=== PATIENT | male | born 1955 | race Caucasian/White ===

== ENCOUNTER 2023-09-11 13:43 | Inpatient (IN) | payer OTHER ==
[2023-09-11] MEDS ORDERED: VANCOMYCIN 1 GRAM (PRE-DOCKED) 1,000 MG/250 ML BAG IVPB ONE ×2 (15:00→16:00)
[2023-09-11] MEDS ORDERED: PIPERACILLIN/TAZOB 3.375 GM 3.375 GM/50 ML BAG IVPB ONE ×2 (16:00→22:42)
[2023-09-11] MEDS: PIPERACILLIN/TAZOB 3.375 GM 3.375 GM in DEXTROSE 5%-WATER - 50 ML IVPB ONE (16:33)
[2023-09-11 16:37] LABS: BASO % 1.1 % (0-2.0); HEMATOCRIT 33.2 % (35.4-49); HEMOGLOBIN 11.1 GM/dL (11.7-16.9); LYMPH % 13.1 % (8-40); MCH 27.6 pg (25.7-33.7); MCHC 33.4 g/dl (32.0-35.9); MEAN CELL VOLUME 82.5 fl (80-96); MEAN PLT VOLUME 8.2 fl (7.5-11.1); MONO % 11.9 % (3.8-10.2); NEUT % 71.9 % (42.8-82.8); PLATELET COUNT 255 10^3/uL (134-434); RBC 4.03 M/mm3 (4.00-5.60); RDW 15.9 % (11.9-15.9); WHITE BLOOD COUNT 6.9 K/mm3 (4.0-10.0)
[2023-09-11 17:03] LABS: POTASSIUM 4.2 mmol/L (3.5-5.1)
[2023-09-11 17:06] LABS: CALCIUM 9.3 mg/dL (8.5-10.1)
[2023-09-11 17:07] LABS: BLOOD UREA NITROGEN 12.8 mg/dL (7-18); MAGNESIUM 1.5 mg/dL (1.8-2.4)
[2023-09-11 17:11] LABS: TOT PROT 7.1 g/dl (6.4-8.2)
[2023-09-11 17:12] LABS: BILIRUBIN,TOTAL 0.4 mg/dL (0.2-1)
[2023-09-11 17:14] LABS: INR 1.06 (0.83-1.09); PROTHROMBIN TIME (PATIENT) 12.3 SEC (9.7-13.0)
[2023-09-11 17:25] LABS: ERYTHROCYTE SEDIMENTATION RATE 52 mm/hr (0-20)
[2023-09-11] MEDS ORDERED: MAGNESIUM 1GM/D5W - 1 GM/100 ML IVPB IVPB ONE (17:54)
[2023-09-11] MEDS: VANCOMYCIN 1 GRAM (PRE-DOCKED) 1,000 MG/250 ML BAG IVPB ONE (18:03)
[2023-09-11 18:06] LABS: N-TERMINAL BNP 3565.8 pg/ml (5-125)
[2023-09-11] MEDS ORDERED: diphenhydrAMINE HCL 25 MG CAPSULE (FP) PO ONE (18:34)
[2023-09-11] MEDS: diphenhydrAMINE HCL 50 MG CAPSULE PO ONE (18:45)
[2023-09-11] MEDS: MAGNESIUM SULF 50% (8.12 MEQ/2 ML-1 GM VIAL) IVPB ONE (21:10)
[2023-09-11] MEDS: PIPERACILLIN/TAZOB 3.375 GM 3.375 GM in DEXTROSE 5%-WATER - 50 ML IVPB SCH (22:51)
[2023-09-12] MEDS: KETOROLAC TROMETHAMINE 30 MG/1 ML VIAL IVPUSH ONE (02:10)
[2023-09-12] MEDS ORDERED: ACETAMINOPHEN INJECTION 100 ML IVPB ONE (02:43)
[2023-09-12] MEDS: ACETAMINOPHEN 1000 MG/100 ML BAG IVPB PRN (02:52)
[2023-09-12] MEDS: VANCOMYCIN/WATER 1250 MG 1,250 MG/250 ML BAG IVPB SCH ×2 (06:46→17:53)
[2023-09-12] MEDS ORDERED: ACETAMINOPHEN 1000 MG/100 ML BAG IVPB PRN (09:03)
[2023-09-12 09:20] LABS: HEMATOCRIT 31.9 % (35.4-49); HEMOGLOBIN 10.6 GM/dL (11.7-16.9); MCH 27.6 pg (25.7-33.7); MCHC 33.4 g/dl (32.0-35.9); MEAN CELL VOLUME 82.8 fl (80-96); MEAN PLT VOLUME 8.5 fl (7.5-11.1); PLATELET COUNT 237 10^3/uL (134-434); RBC 3.85 M/mm3 (4.00-5.60); RDW 16.2 % (11.9-15.9); WHITE BLOOD COUNT 5.9 K/mm3 (4.0-10.0)
[2023-09-12 10:18] LABS: POTASSIUM 4.6 mmol/L (3.5-5.1)
[2023-09-12 10:22] LABS: CALCIUM 8.9 mg/dL (8.5-10.1)
[2023-09-12 10:25] LABS: PHOSPHOROUS 3.7 mg/dL (2.5-4.9)
[2023-09-12 10:26] LABS: BLOOD UREA NITROGEN 16.3 mg/dL (7-18); CREATININE 1.3 mg/dL (0.55-1.3); MAGNESIUM 1.7 mg/dL (1.8-2.4)
[2023-09-12] MEDS ORDERED: HEPARIN NA (PORCINE) 5,000 UNITS/ML 1ML VIAL SQ SCH (14:00)
[2023-09-12] MEDS ORDERED: CEFAZOLIN 1 GM in DEXTROSE 5%-WATER - 50 ML IVPB SCH (15:00)
[2023-09-12] MEDS ORDERED: PIPERACILLIN/TAZOB 3.375 GM 3.375 GM in DEXTROSE 5%-WATER - 50 ML IVPB SCH (15:00)
[2023-09-12] MEDS: COLLAGENASE CLOSTRIDIUM HIST. 30 GRAMS TUBE TP SCH (17:13)
[2023-09-12] MEDS: PIPERACILLIN/TAZOB 4.5 GM 4.5 GM in DEXTROSE 5%-WATER 100 ML IVPB SCH (18:13)
[2023-09-12] MEDS: KETOROLAC TROMETHAMINE 30 MG/1 ML VIAL IVPUSH PRN (20:26)
[2023-09-12] MEDS: MAGNESIUM OXIDE 400 MG TABLET (FP) PO SCH (21:31)
[2023-09-12] MEDS: LACTOBACILLUS ACIDOPHILUS 1 TABLET PO SCH (21:31)
[2023-09-12] MEDS: MELATONIN 5 MG TABLETS PO PRN (21:31)
[2023-09-12] MEDS: FERROUS GLUCONATE 324 MG TAB (FP) PO SCH (21:32)
[2023-09-12] MEDS: guaiFENesin/D-METHORPHAN TAB.ER.12H PO SCH (21:32)
[2023-09-13] MEDS: ACETAMINOPHEN 325 MG TABLET (FP) PO PRN (07:00)
[2023-09-13] MEDS: ENOXAPARIN NA (PORCINE) 40 MG/0.4 ML DISP.SYRIN SQ SCH (09:23)
[2023-09-13] MEDS: FLUTICASONE PROP 0.05% 16 GM NASAL SPRAY NS SCH (09:23)
[2023-09-13] MEDS: ASPIRIN 81 MG CHEWABLE TABLETS PO SCH (09:23)
[2023-09-13] MEDS: MULTIVITAMINS THER W-MINERALS COMBO TABLET (FP) PO SCH (09:23)
[2023-09-13] MEDS: HYDROCHLOROTHIAZIDE 12.5 MG CAPSULE (FP) PO SCH (09:28)
[2023-09-14] MEDS: LINEZOLID 600 MG TABLET (RESTRICTED TO ID) PO SCH (21:22)
[2023-09-15] MEDS ORDERED: PIPERACILLIN/TAZOBACTAM 4.5 GM VIAL IVPB ONE (10:00)
[2023-09-15] MEDS: VITAMIN B COMP W-C 1 EA TABLET (NEPHRO-VITE) PO SCH (10:02)
[2023-09-15] MEDS: NYSTATIN 500,000 UNITS/5 ML SUSPENSION PO SCH (11:24)
[2023-09-15] MEDS: MAG HYDROX/ALH/SMC/DPHA/LIDO 240 ML MOUTHWASH MM SCH (12:01)
[2023-09-15 17:56] LABS: BASO % 0.6 % (0-2.0); EOS % 2.1 % (0-4.5); HEMATOCRIT 35.2 % (35.4-49); HEMOGLOBIN 11.7 GM/dL (11.7-16.9); LYMPH % 17.6 % (8-40); MCH 27.4 pg (25.7-33.7); MCHC 33.3 g/dl (32.0-35.9); MEAN CELL VOLUME 82.4 fl (80-96); MEAN PLT VOLUME 8.3 fl (7.5-11.1); MONO % 9.5 % (3.8-10.2); NEUT % 70.2 % (42.8-82.8); PLATELET COUNT 247 10^3/uL (134-434); RBC 4.28 M/mm3 (4.00-5.60); RDW 16.1 % (11.9-15.9); WHITE BLOOD COUNT 6.4 K/mm3 (4.0-10.0)
[2023-09-15 18:23] LABS: CALCIUM 8.8 mg/dL (8.5-10.1)
[2023-09-15 18:27] LABS: CREATININE 1.1 mg/dL (0.55-1.3)
[2023-09-15 18:28] LABS: TOT PROT 7.4 g/dl (6.4-8.2)
[2023-09-15 18:29] LABS: BILIRUBIN,TOTAL 0.6 mg/dL (0.2-1)
[2023-09-16] MEDS: EMPAGLIFLOZIN (JARDIANCE) 25 MG TABLET PO SCH (12:22)
[2023-09-16 16:35] LABS: LDL CHOLESTEROL (ONLY SJRH) 144 mg/dL (5-100)
[2023-09-16 16:36] LABS: CHOLESTEROL 210 mg/dL (50-200)
[2023-09-16 16:39] LABS: HDL CHOLESTEROL 52 mg/dL (40-60)
[2023-09-16] MEDS: SACUBITRIL/VALSARTAN 24 MG-26 MG TABLET PO SCH (22:11)
[2023-09-17 10:04] LABS: BASO % 1.2 % (0-2.0); HEMOGLOBIN 11.9 GM/dL (11.7-16.9); LYMPH % 19.9 % (8-40); MCHC 32.2 g/dl (32.0-35.9); MEAN CELL VOLUME 83.8 fl (80-96); MEAN PLT VOLUME 8.5 fl (7.5-11.1); MONO % 10.9 % (3.8-10.2); PLATELET COUNT 269 10^3/uL (134-434); RBC 4.42 M/mm3 (4.00-5.60); RDW 15.9 % (11.9-15.9); WHITE BLOOD COUNT 6.6 K/mm3 (4.0-10.0)
[2023-09-17 10:22] LABS: POTASSIUM 4.6 mmol/L (3.5-5.1)
[2023-09-17 10:32] LABS: BLOOD UREA NITROGEN 22.5 mg/dL (7-18); CALCIUM 9.8 mg/dL (8.5-10.1)
[2023-09-17 10:36] LABS: CREATININE 1.2 mg/dL (0.55-1.3)
[2023-09-17] MEDS: ATORVASTATIN CA 20 MG TABLET (FP) PO SCH (21:22)
[2023-09-18 14:55] VITALS: BMI 25.9
[2023-09-19] MEDS ORDERED: diphenhydrAMINE HCL 25 MG CAPSULE (FP) PO PRN (09:06)
[2023-09-19 11:55] LABS: BASO % 1.1 % (0-2.0); EOS % 2.9 % (0-4.5); HEMATOCRIT 37.1 % (35.4-49); HEMOGLOBIN 12.2 GM/dL (11.7-16.9); LYMPH % 22.5 % (8-40); MCHC 32.8 g/dl (32.0-35.9); MEAN CELL VOLUME 82.4 fl (80-96); MEAN PLT VOLUME 8.5 fl (7.5-11.1); MONO % 10.6 % (3.8-10.2); NEUT % 62.9 % (42.8-82.8); PLATELET COUNT 271 10^3/uL (134-434); RBC 4.51 M/mm3 (4.00-5.60); RDW 16.2 % (11.9-15.9); WHITE BLOOD COUNT 6.6 K/mm3 (4.0-10.0)
[2023-09-19 12:15] LABS: POTASSIUM 4.5 mmol/L (3.5-5.1)
[2023-09-19 12:16] LABS: CALCIUM 9.2 mg/dL (8.5-10.1)
[2023-09-19 12:17] LABS: BLOOD UREA NITROGEN 17.9 mg/dL (7-18)
[2023-09-19 12:20] LABS: CREATININE 1.4 mg/dL (0.55-1.3)
[2023-09-20 09:47] LABS: POTASSIUM 4.5 mmol/L (3.5-5.1)
[2023-09-20 09:53] LABS: BLOOD UREA NITROGEN 18.2 mg/dL (7-18)
[2023-09-20 09:57] LABS: CREATININE 1.3 mg/dL (0.55-1.3)
[2023-09-20] MEDS: ENOXAPARIN NA (PORCINE) 40 MG/0.4 ML DISP.SYRIN SQ SCH (14:42)
[2023-09-22] MEDS ORDERED: LIDOCAINE 1%/EPI 1:100000 (20 ML MULTI DOSE VIAL) ONE (13:16)
[2023-09-22] MEDS ORDERED: BUPIVACAINE HCL/PF 0.25% (2.5MG/ML) 10 ML VIAL ONE (13:16)
[2023-09-22] MEDS ORDERED: traMADol HCL 50 MG TABLET PO PRN (15:39)
[2023-09-23 10:22] LABS: EOS % 4.6 % (0-4.5); HEMATOCRIT 37.4 % (35.4-49); HEMOGLOBIN 12.2 GM/dL (11.7-16.9); LYMPH % 23.8 % (8-40); MCH 27.5 pg (25.7-33.7); MCHC 32.6 g/dl (32.0-35.9); MEAN CELL VOLUME 84.3 fl (80-96); MEAN PLT VOLUME 8.1 fl (7.5-11.1); MONO % 12.4 % (3.8-10.2); NEUT % 58.2 % (42.8-82.8); PLATELET COUNT 217 10^3/uL (134-434); RBC 4.43 M/mm3 (4.00-5.60); RDW 15.9 % (11.9-15.9); WHITE BLOOD COUNT 5.9 K/mm3 (4.0-10.0)
[2023-09-23 11:32] LABS: POTASSIUM 4.7 mmol/L (3.5-5.1)
[2023-09-23 11:35] LABS: ALBUMIN 3.4 g/dl (3.4-5.0); BLOOD UREA NITROGEN 13.9 mg/dL (7-18)
[2023-09-23 11:38] LABS: CREATININE 1.3 mg/dL (0.55-1.3)
[2023-09-23 11:39] LABS: BILIRUBIN,TOTAL 0.5 mg/dL (0.2-1); TOT PROT 8.4 g/dl (6.4-8.2)
[2023-09-23 11:40] LABS: CALCIUM 10.4 mg/dL (8.5-10.1)
[2023-09-24] MEDS: MAG HYDROX/AL HYDROX/SIMETH -MYLANTA- ORAL SUSPENSION PO ONE (01:28)
[2023-09-24] MEDS: D5-1/2NS+10 MEQ KCL - 10 MEQ/1,000 ML INFUS.BAG IV SCH (10:53)
[2023-09-24] MEDS ORDERED: LIDOCAINE 1%/EPI 1:100000 (20 ML MULTI DOSE VIAL) ONE (15:03)
[2023-09-24] MEDS ORDERED: PROPOFOL 20 ML ONE (15:52)
[2023-09-24] MEDS ORDERED: MIDAZOLAM HCL 2 MG/2 ML SINGLE DOSE VIAL ONE (15:52)
[2023-09-24] MEDS ORDERED: SUCCINYLCHOLINE CHLORIDE 200 MG/10 ML SYRINGE ONE (16:55)
[2023-09-24] MEDS ORDERED: ROCURONIUM BROMIDE 50 MG/5 ML SYRINGE ONE (17:01)
[2023-09-24] MEDS ORDERED: ONDANSETRON 4 MG/2 ML VIAL ONE (17:31)
[2023-09-24] MEDS: LIDOCAINE 1%/EPI 1:100000 (20 ML MULTI DOSE VIAL) INF ONE (17:31)
[2023-09-24] MEDS ORDERED: DEXAMETHASONE SOD PHOSPHATE 4 MG/1 ML VIAL ONE (17:31)
[2023-09-24] MEDS ORDERED: ONDANSETRON 4 MG/2 ML VIAL IVPUSH PRN ×2 (18:55→19:31)
[2023-09-24] MEDS ORDERED: ACETAMINOPHEN 1000 MG/100 ML BAG IVPB PRN ×2 (18:56→19:31)
[2023-09-24] MEDS: LACTATED RINGERS SOLUTION 1,000 ML IV SCH (19:30)
[2023-09-24] MEDS ORDERED: ACETAMINOPHEN 325 MG TABLET (FP) PO PRN (19:31)
[2023-09-24] MEDS ORDERED: MELATONIN 5 MG TABLETS PO PRN (19:31)
[2023-09-24] MEDS ORDERED: diphenhydrAMINE HCL 25 MG CAPSULE (FP) PO PRN (19:31)
[2023-09-24] MEDS ORDERED: ACETAMINOPHEN INJECTION 100 ML IVPB ONE (19:42)
[2023-09-24] MEDS: ACETAMINOPHEN 1000 MG/100 ML BAG IVPB ONE (19:45)
[2023-09-24] MEDS: LACTOBACILLUS ACIDOPHILUS 1 TABLET PO SCH (22:00)
[2023-09-24] MEDS: MAGNESIUM OXIDE 400 MG TABLET (FP) PO SCH (22:00)
[2023-09-24] MEDS: FERROUS GLUCONATE 324 MG TAB (FP) PO SCH (22:01)
[2023-09-24] MEDS: guaiFENesin/D-METHORPHAN TAB.ER.12H PO SCH (22:01)
[2023-09-24] MEDS: ATORVASTATIN CA 20 MG TABLET (FP) PO SCH (22:01)
[2023-09-24] MEDS: traMADol HCL 50 MG TABLET PO PRN (23:39)
[2023-09-24] MEDS: NYSTATIN 500,000 UNITS/5 ML SUSPENSION PO SCH (23:42)
[2023-09-24] MEDS: MAG HYDROX/ALH/SMC/DPHA/LIDO 240 ML MOUTHWASH MM SCH (23:43)
[2023-09-25] MEDS: VITAMIN B COMP W-C 1 EA TABLET (NEPHRO-VITE) PO SCH (09:52)
[2023-09-25] MEDS: ENOXAPARIN NA (PORCINE) 40 MG/0.4 ML DISP.SYRIN SQ SCH (09:52)
[2023-09-25] MEDS: MULTIVITAMINS THER W-MINERALS COMBO TABLET (FP) PO SCH (09:53)
[2023-09-25] MEDS: EMPAGLIFLOZIN (JARDIANCE) 25 MG TABLET PO SCH (09:55)
[2023-09-25] MEDS: FLUTICASONE PROP 0.05% 16 GM NASAL SPRAY NS SCH (10:38)
[2023-09-25 11:29] LABS: BASO % 0.8 % (0-2.0); EOS % 0.6 % (0-4.5); HEMATOCRIT 35.6 % (35.4-49); HEMOGLOBIN 11.6 GM/dL (11.7-16.9); MCH 27.4 pg (25.7-33.7); MCHC 32.6 g/dl (32.0-35.9); MEAN CELL VOLUME 83.9 fl (80-96); MEAN PLT VOLUME 8.1 fl (7.5-11.1); MONO % 11.1 % (3.8-10.2); NEUT % 70.5 % (42.8-82.8); PLATELET COUNT 217 10^3/uL (134-434); RBC 4.24 M/mm3 (4.00-5.60); RDW 16.1 % (11.9-15.9); WHITE BLOOD COUNT 10.3 K/mm3 (4.0-10.0)
[2023-09-25 11:38] LABS: POTASSIUM 4.5 mmol/L (3.5-5.1)
[2023-09-25 11:44] LABS: CALCIUM 9.6 mg/dL (8.5-10.1)
[2023-09-25 11:45] LABS: ALBUMIN 3.4 g/dl (3.4-5.0); BLOOD UREA NITROGEN 17.7 mg/dL (7-18)
[2023-09-25 11:48] LABS: CREATININE 1.5 mg/dL (0.55-1.3)
[2023-09-25 11:49] LABS: BILIRUBIN,TOTAL 0.4 mg/dL (0.2-1); TOT PROT 8.1 g/dl (6.4-8.2)
[2023-09-25] MEDS: LACTATED RINGERS SOLUTION 1,000 ML IV SCH (20:43)
[2023-09-25] MEDS: D5-1/2NS+10 MEQ KCL - 10 MEQ/1,000 ML INFUS.BAG IV SCH (20:43)
[2023-09-26] MEDS: ACETAMINOPHEN 1000 MG/100 ML BAG IVPB ONE (02:34)
[2023-09-26] MEDS: traMADol HCL 50 MG TABLET PO ONE (02:38)
[2023-09-26 11:41] LABS: BASO % 0.9 % (0-2.0); EOS % 3.2 % (0-4.5); HEMATOCRIT 33.9 % (35.4-49); HEMOGLOBIN 11.4 GM/dL (11.7-16.9); LYMPH % 16.3 % (8-40); MCH 27.9 pg (25.7-33.7); MCHC 33.5 g/dl (32.0-35.9); MEAN CELL VOLUME 83.3 fl (80-96); MEAN PLT VOLUME 8.2 fl (7.5-11.1); MONO % 17.1 % (3.8-10.2); NEUT % 62.5 % (42.8-82.8); PLATELET COUNT 205 10^3/uL (134-434); RBC 4.07 M/mm3 (4.00-5.60); RDW 16.2 % (11.9-15.9); WHITE BLOOD COUNT 9.7 K/mm3 (4.0-10.0)
[2023-09-26 12:14] LABS: POTASSIUM 4.2 mmol/L (3.5-5.1)
[2023-09-26 12:20] LABS: CALCIUM 9.4 mg/dL (8.5-10.1)
[2023-09-26 12:22] LABS: BLOOD UREA NITROGEN 25.3 mg/dL (7-18)
[2023-09-26 12:24] LABS: CREATININE 1.4 mg/dL (0.55-1.3)
[2023-09-26] MEDS: ACETAMINOPHEN 325 MG TABLET (FP) PO PRN (15:52)
[2023-09-26] MEDS: SILVER SULFADIAZINE 1% TOP CREAM 50 GM JAR TP SCH (17:30)
[2023-09-27] MEDS: SILVER NITRATE 75% APPLIC STCK 1 PKT EACH TP ONE (17:00)
[2023-09-29 09:26] LABS: BASO % 1.1 % (0-2.0); EOS % 3.7 % (0-4.5); HEMATOCRIT 31.4 % (35.4-49); HEMOGLOBIN 10.7 GM/dL (11.7-16.9); LYMPH % 20.2 % (8-40); MCH 28.2 pg (25.7-33.7); MEAN CELL VOLUME 82.9 fl (80-96); MEAN PLT VOLUME 8.5 fl (7.5-11.1); MONO % 16.7 % (3.8-10.2); NEUT % 58.3 % (42.8-82.8); PLATELET COUNT 236 10^3/uL (134-434); POTASSIUM 4.8 mmol/L (3.5-5.1); RBC 3.78 M/mm3 (4.00-5.60); RDW 16.4 % (11.9-15.9); WHITE BLOOD COUNT 7.7 K/mm3 (4.0-10.0)
[2023-09-29 09:27] LABS: CALCIUM 9.2 mg/dL (8.5-10.1)
[2023-09-29 09:28] LABS: BLOOD UREA NITROGEN 22.9 mg/dL (7-18)
[2023-09-29 09:31] LABS: CREATININE 1.3 mg/dL (0.55-1.3)
[2023-09-29] MEDS: ACETAMINOPHEN 1000 MG/100 ML BAG IVPB ONE (21:04)
[2023-09-29] MEDS: traMADol HCL 50 MG TABLET PO PRN (21:05)
[2023-10-02 08:08] LABS: BASO % 1.5 % (0-2.0); EOS % 4.9 % (0-4.5); HEMATOCRIT 32.2 % (35.4-49); HEMOGLOBIN 10.4 GM/dL (11.7-16.9); LYMPH % 18.7 % (8-40); MCH 27.1 pg (25.7-33.7); MCHC 32.2 g/dl (32.0-35.9); MEAN CELL VOLUME 84.1 fl (80-96); MEAN PLT VOLUME 8.4 fl (7.5-11.1); MONO % 18.3 % (3.8-10.2); NEUT % 56.6 % (42.8-82.8); PLATELET COUNT 237 10^3/uL (134-434); RBC 3.83 M/mm3 (4.00-5.60); RDW 16.9 % (11.9-15.9)
[2023-10-02 08:19] LABS: POTASSIUM 4.4 mmol/L (3.5-5.1)
[2023-10-02 08:22] LABS: BLOOD UREA NITROGEN 21.6 mg/dL (7-18)
[2023-10-02 08:25] LABS: CREATININE 1.2 mg/dL (0.55-1.3)
[2023-10-02] MEDS ORDERED: LIDOCAINE HCL 1%, 10 MG/ML (20ML VIAL) ONE (09:34)
[2023-10-02] MEDS ORDERED: BUPIVACAINE HCL/PF 0.5% (5MG/ML) 10 ML VIAL ONE (09:34)
[2023-10-02] MEDS ORDERED: oxyCODONE HCL 5 MG TABLET PO PRN ×2 (09:57)
[2023-10-02] MEDS ORDERED: PROMETHAZINE HCL 25 MG/1 ML VIAL IVPB PRN ×2 (09:57→12:57)
[2023-10-02] MEDS ORDERED: ONDANSETRON 4 MG/2 ML VIAL IVPUSH PRN ×2 (09:57→12:57)
[2023-10-02] MEDS ORDERED: MIDAZOLAM HCL 2 MG/2 ML SINGLE DOSE VIAL ONE (10:12)
[2023-10-02] MEDS ORDERED: PROPOFOL 20 ML ONE (10:12)
[2023-10-02] MEDS ORDERED: DEXAMETHASONE SOD PHOSPHATE 4 MG/1 ML VIAL ONE (10:14)
[2023-10-02] MEDS ORDERED: LIDOCAINE HCL/PF 2% SDV 5ML VIAL ONE (10:14)
[2023-10-02] MEDS ORDERED: ROCURONIUM BROMIDE 50 MG/5 ML SYRINGE ONE (10:32)
[2023-10-02] MEDS ORDERED: LIDOCAINE 1%/EPI 1:100000 (20 ML MULTI DOSE VIAL) ONE (10:55)
[2023-10-02] MEDS ORDERED: GENTAMICIN SO4 80 MG/2 ML VIAL ONE (10:55)
[2023-10-02] MEDS ORDERED: ceFAZolin SODIUM 1 GM VIAL ONE (10:55)
[2023-10-02] MEDS ORDERED: SUGAMMADEX SODIUM 200 MG/2 ML VIAL ONE (11:03)
[2023-10-02] MEDS: ceFAZolin SODIUM 1 GM VIAL IVPB ONE (11:10)
[2023-10-02] MEDS: GENTAMICIN SO4 80 MG/2 ML VIAL IVPB ONE (11:27)
[2023-10-02] MEDS: LIDOCAINE 1%/EPI 1:100000 (20 ML MULTI DOSE VIAL) IJ ONE ×2 (11:27)
[2023-10-02] MEDS: BUPIVACAINE HCL/PF 0.5% (5MG/ML) 10 ML VIAL IJ ONE ×2 (11:27)
[2023-10-02] MEDS ORDERED: KETOROLAC TROMETHAMINE 30 MG/1 ML VIAL ONE (11:43)
[2023-10-02] MEDS ORDERED: MELATONIN 5 MG TABLETS PO PRN (12:57)
[2023-10-02] MEDS ORDERED: ACETAMINOPHEN 325 MG TABLET (FP) PO PRN (12:57)
[2023-10-02] MEDS ORDERED: diphenhydrAMINE HCL 25 MG CAPSULE (FP) PO PRN (12:57)
[2023-10-02] MEDS: LACTATED RINGERS SOLUTION 1,000 ML IV SCH ×3 (13:50→18:54)
[2023-10-02] MEDS: NYSTATIN 500,000 UNITS/5 ML SUSPENSION PO SCH (18:02)
[2023-10-02] MEDS: MAG HYDROX/ALH/SMC/DPHA/LIDO 240 ML MOUTHWASH MM SCH (18:03)
[2023-10-02] MEDS: LACTOBACILLUS ACIDOPHILUS 1 TABLET PO SCH (22:42)
[2023-10-02] MEDS: MAGNESIUM OXIDE 400 MG TABLET (FP) PO SCH (22:42)
[2023-10-02] MEDS: ATORVASTATIN CA 20 MG TABLET (FP) PO SCH (22:42)
[2023-10-02] MEDS: guaiFENesin/D-METHORPHAN TAB.ER.12H PO SCH (22:43)
[2023-10-02] MEDS: oxyCODONE HCL 5 MG TABLET PO PRN (22:45)
[2023-10-02] MEDS: FERROUS GLUCONATE 324 MG TAB (FP) PO SCH (23:42)
[2023-10-03] MEDS: oxyCODONE HCL 5 MG TABLET PO PRN (02:11)
[2023-10-03] MEDS ORDERED: BENZOCAINE/MENTH/CETYLPYRD CL 1 EACH LOZENGE MM PRN (03:06)
[2023-10-03] MEDS: VITAMIN B COMP W-C 1 EA TABLET (NEPHRO-VITE) PO SCH (09:35)
[2023-10-03] MEDS: MULTIVITAMINS THER W-MINERALS COMBO TABLET (FP) PO SCH (09:37)
[2023-10-03] MEDS: FLUTICASONE PROP 0.05% 16 GM NASAL SPRAY NS SCH (09:38)
[2023-10-03] MEDS: traMADol HCL 50 MG TABLET PO PRN (20:30)
[2023-10-04] MEDS: oxyCODONE HCL 5 MG TABLET PO PRN (01:54)
[2023-10-04 07:36] LABS: BASO % 1.2 % (0-2.0); EOS % 4.9 % (0-4.5); HEMATOCRIT 30.2 % (35.4-49); HEMOGLOBIN 9.9 GM/dL (11.7-16.9); LYMPH % 21.5 % (8-40); MCH 27.5 pg (25.7-33.7); MCHC 32.7 g/dl (32.0-35.9); MEAN CELL VOLUME 84.1 fl (80-96); MEAN PLT VOLUME 8.4 fl (7.5-11.1); MONO % 13.2 % (3.8-10.2); NEUT % 59.2 % (42.8-82.8); PLATELET COUNT 248 10^3/uL (134-434); RBC 3.59 M/mm3 (4.00-5.60); RDW 16.9 % (11.9-15.9); WHITE BLOOD COUNT 8.1 K/mm3 (4.0-10.0)
[2023-10-04 07:52] LABS: POTASSIUM 4.7 mmol/L (3.5-5.1)
[2023-10-04 07:55] LABS: ALBUMIN 2.8 g/dl (3.4-5.0)
[2023-10-04 07:58] LABS: CREATININE 1.1 mg/dL (0.55-1.3)
[2023-10-04 08:00] LABS: BILIRUBIN,TOTAL 0.4 mg/dL (0.2-1); TOT PROT 6.5 g/dl (6.4-8.2)
[2023-10-04] MEDS: ENOXAPARIN NA (PORCINE) 40 MG/0.4 ML DISP.SYRIN SQ SCH (09:57)
[2023-10-04] MEDS: GENTAMICIN SO4 0.1% TOP CREAM 15 GM/TUBE TP SCH (11:15)
[2023-10-04] MEDS: PIPERACILLIN/TAZOB 3.375 GM 3.375 GM in DEXTROSE 5%-WATER - 50 ML IVPB SCH (19:47)
[2023-10-05 10:52] VITALS: RESP 18
[2023-10-05 22:32] VITALS: BP 119/70; PULSE 74; TEMP 97.3
[2023-10-06] MEDS: EMPAGLIFLOZIN (JARDIANCE) 10 MG TABLET PO SCH (06:12)
== END 2023-10-06 11:55 | DRG 571 ==
LOC: JER 13:43 → JERBED 16:09 → J6S 09-12 02:59 → J5S 09-16 13:18 → J8W 09-25 14:40
PROVIDERS: ADMIT Internal Medicine; ATTEND Internal Medicine
PROC: 0JBP0ZZ Excision of Left Lower Leg Subcutaneous Tissue and Fascia, Open Approach (ICD-10-PCS; principal; 2023-09-24 15:30)
PROC: 0KBT0ZZ Excision of Left Lower Leg Muscle, Open Approach (ICD-10-PCS; 2023-10-02)
PROC: 0KBT0ZX Excision of Left Lower Leg Muscle, Open Approach, Diagnostic (ICD-10-PCS; 2023-10-02)
PROC: 2W2RX4Z Dressing of Left Lower Leg using Bandage (ICD-10-PCS; 2023-10-02)
DX: L03.116 Cellulitis of left lower limb (principal); I50.42 Chronic combined systolic (congestive) and diastolic (congestive) heart failure; L97.828 Non-pressure chronic ulcer of other part of left lower leg with other specified severity; I11.0 Hypertensive heart disease with heart failure; S81.802A Unspecified open wound, left lower leg, initial encounter; I89.0 Lymphedema, not elsewhere classified; I25.10 Atherosclerotic heart disease of native coronary artery without angina pectoris; F03.90 Unspecified dementia, unspecified severity, without behavioral disturbance, psychotic disturbance, mood disturbance, and anxiety; E78.5 Hyperlipidemia, unspecified; I25.2 Old myocardial infarction; B96.5 Pseudomonas (aeruginosa) (mallei) (pseudomallei) as the cause of diseases classified elsewhere; Z95.810 Presence of automatic (implantable) cardiac defibrillator; Z95.1 Presence of aortocoronary bypass graft
CPT/HCPCS: 0241U-QW; 36415; 71045-TC-FY; 73590-TC-LT-FY; 73610-TC-LT-FY; 73630-TC-LT; 80048; 80053; 80061; 82010; 83036; 83605; 83735; 83880; 84100; 85025; 85027; 85610; 85651; 85730; 86140; 87040; 87070; 87075; 87077; 87186; 87205; 87635; 88304-TC; 93005; 93010; 93306-TC; 93970-TC; 94760; 99285-25; J0131

== ENCOUNTER 2023-12-22 13:06 | Inpatient (IN) | payer OTHER ==
[2023-12-22 15:20] LABS: BASO % 1.3 % (0-2.0); EOS % 0.1 % (0-4.5); HEMATOCRIT 41.5 % (35.4-49); HEMOGLOBIN 13.9 GM/dL (11.7-16.9); LYMPH % 11.7 % (8-40); MCH 29.2 pg (25.7-33.7); MCHC 33.4 g/dl (32.0-35.9); MEAN CELL VOLUME 87.2 fl (80-96); MONO % 7.7 % (3.8-10.2); NEUT % 79.2 % (42.8-82.8); PLATELET COUNT 200 10^3/uL (134-434); RBC 4.76 M/mm3 (4.00-5.60); WHITE BLOOD COUNT 6.6 K/mm3 (4.0-10.0)
[2023-12-22 15:39] LABS: POTASSIUM 4.1 mmol/L (3.5-5.1)
[2023-12-22 15:42] LABS: ALBUMIN 3.9 g/dl (3.4-5.0); BLOOD UREA NITROGEN 14.5 mg/dL (7-18); CALCIUM 9.7 mg/dL (8.5-10.1); MAGNESIUM 1.8 mg/dL (1.8-2.4)
[2023-12-22 15:45] LABS: CREATININE 1.1 mg/dL (0.55-1.3)
[2023-12-22 15:47] LABS: BILIRUBIN,TOTAL 1.3 mg/dL (0.2-1); TOT PROT 8.3 g/dl (6.4-8.2)
[2023-12-22] MEDS ORDERED: ACETAMINOPHEN INJECTION 100 ML IVPB ONE (15:53)
[2023-12-22 15:55] LABS: INR 1.5 (0.83-1.09); PROTHROMBIN TIME (PATIENT) 16.8 SEC (9.7-13.0)
[2023-12-22] MEDS: ACETAMINOPHEN 1000 MG/100 ML BAG IVPB ONE (15:56)
[2023-12-22 15:58] LABS: ACTIVATED PTT 40.7 SECONDS (25.2-36.5)
[2023-12-22] MEDS ORDERED: PIPERACILLIN/TAZOB 4.5 GM 4.5 GM in DEXTROSE 5%-WATER 100 ML IVPB SCH (21:00)
[2023-12-22 21:21] VITALS: RESP 20
[2023-12-22] MEDS: SODIUM CHLORIDE 1,000 ML IV SCH (21:43)
[2023-12-22] MEDS: PIPERACILLIN/TAZOB 4.5 GM 4.5 GM in DEXTROSE 5%-WATER 100 ML IVPB SCH (21:43)
[2023-12-23] MEDS: ACETAMINOPHEN 500 MG TABLET (FP) PO ONE (02:57)
[2023-12-23 03:39] VITALS: BMI 25.4
[2023-12-23 08:20] LABS: BASO % 0.9 % (0-2.0); EOS % 2.1 % (0-4.5); HEMOGLOBIN 13.1 GM/dL (11.7-16.9); LYMPH % 22.8 % (8-40); MCH 29.2 pg (25.7-33.7); MCHC 33.5 g/dl (32.0-35.9); MEAN CELL VOLUME 87.1 fl (80-96); MEAN PLT VOLUME 8.6 fl (7.5-11.1); MONO % 13.2 % (3.8-10.2); PLATELET COUNT 160 10^3/uL (134-434); RBC 4.48 M/mm3 (4.00-5.60); WHITE BLOOD COUNT 5.1 K/mm3 (4.0-10.0)
[2023-12-23 08:41] LABS: POTASSIUM 3.4 mmol/L (3.5-5.1)
[2023-12-23 08:44] LABS: CALCIUM 8.9 mg/dL (8.5-10.1)
[2023-12-23 08:45] LABS: ALBUMIN 3.6 g/dl (3.4-5.0); MAGNESIUM 1.6 mg/dL (1.8-2.4)
[2023-12-23 08:46] LABS: BLOOD UREA NITROGEN 16.2 mg/dL (7-18)
[2023-12-23 08:48] LABS: CREATININE 1.2 mg/dL (0.55-1.3); PHOSPHOROUS 2.5 mg/dL (2.5-4.9)
[2023-12-23 08:50] LABS: TOT PROT 7.4 g/dl (6.4-8.2)
[2023-12-23 08:51] LABS: BILIRUBIN,TOTAL 1.1 mg/dL (0.2-1)
[2023-12-23] MEDS ORDERED: ACETAMINOPHEN 325 MG TABLET (FP) PO PRN (09:34)
[2023-12-23] MEDS ORDERED: ENOXAPARIN NA (PORCINE) 40 MG/0.4 ML DISP.SYRIN SQ SCH (10:00)
[2023-12-23] MEDS: ASPIRIN 81 MG CHEWABLE TABLETS PO SCH (10:16)
[2023-12-23] MEDS: VALSARTAN 160 MG TABLET PO SCH (10:17)
[2023-12-23] MEDS: POTASSIUM CHLORIDE ORAL LIQUID 20 MEQ/15 ML PO ONE (10:18)
[2023-12-23 14:10] VITALS: BP 139/76; PULSE 85; TEMP 97.8
[2023-12-24] MEDS ORDERED: GENTAMICIN SO4 0.1% TOP CREAM 15 GM/TUBE TP SCH (10:00)
[2023-12-25 17:57] LABS: BILIRUBIN,DIRECT 0.4 mg/dL (0.0-0.2)
[2023-12-25 17:59] LABS: BILIRUBIN,TOTAL 1.3 mg/dL (0.2-1)
== END 2023-12-23 15:09 | disposition home or self-care (01) | DRG 920 ==
LOC: JER 13:06 → JERBED 17:57 → J8W 20:34
PROVIDERS: ADMIT Student in an Organized Health Care Education/Training Program; ATTEND Internal Medicine
DX: T86.828 Other complications of skin graft (allograft) (autograft) (principal); I96 Gangrene, not elsewhere classified; L03.116 Cellulitis of left lower limb; I10 Essential (primary) hypertension; I25.10 Atherosclerotic heart disease of native coronary artery without angina pectoris; E78.5 Hyperlipidemia, unspecified; Z95.0 Presence of cardiac pacemaker; S81.802A Unspecified open wound, left lower leg, initial encounter; Y83.9 Surgical procedure, unspecified as the cause of abnormal reaction of the patient, or of later complication, without mention of misadventure at the time of the procedure; Z95.1 Presence of aortocoronary bypass graft; X58.XXXA Exposure to other specified factors, initial encounter; Y93.9 Activity, unspecified; Y92.89 Other specified places as the place of occurrence of the external cause; Y99.9 Unspecified external cause status
CPT/HCPCS: 36415; 73590-TC-LT-FY; 80053; 82247; 82248; 83735; 84100; 85025; 85610; 85651; 85730; 86140; 87040; 87070; 87186; 87205; 93005; 93010; 99285-25; G0463-25; J0131